=== PATIENT | male | born 1995 ===

== ENCOUNTER 2020-06-17 14:27 | Outpatient (REF) | payer MEDICARE, MEDICAID, SELFPAY ==
[2020-06-17 16:51] LABS: Hematocrit 33.1 % (42-52); Hemoglobin 11.2 g/dl (14.0-18.0); Mean Corpuscular HGB Conc 33.8 g/dl (31.0-36.0); Mean Corpuscular Hemoglobin 29.3 pg (27.0-33.0); Mean Corpuscular Volume 86.6 fL (80-98); Mean Platelet Volume 12.1 fL (9.4-12.4); Platelet Count 214 X10*3/uL (160-400); Red Blood Count 3.82 X10*6/uL (4.60-5.80); White Blood Count 6.1 X10*3/uL (4.8-10.8)
== END 2020-06-17 14:28 | disposition home or self-care (01) ==
LOC: HO.HMGCLDS 14:27
PROVIDERS: PCP Internal Medicine; Visit Provider Hospitalist
DX: Z12.12 Encounter for screening for malignant neoplasm of rectum (principal)
CPT/HCPCS: 36415; 85027

== ENCOUNTER 2020-12-20 12:26 | Outpatient (REF) | payer MEDICARE, MEDICAID, SELFPAY ==
[2020-12-20 14:19] LABS: Hematocrit 31.2 % (42-52); Hemoglobin 9.5 g/dl (14.0-18.0); Mean Corpuscular HGB Conc 30.4 g/dl (31.0-36.0); Mean Corpuscular Hemoglobin 25.4 pg (27.0-33.0); Mean Corpuscular Volume 83.4 fL (80-98); Mean Platelet Volume 11.6 fL (9.4-12.4); Platelet Count 240 X10*3/uL (160-400); Red Blood Count 3.74 X10*6/uL (4.60-5.80); Red Cell Distribution Width 15.2 % (11.0-16.0); White Blood Count 3.9 X10*3/uL (4.8-10.8)
[2020-12-20 14:45] LABS: Alanine Aminotransferase 19 U/L (0-40); Albumin Level 4.4 g/dL (3.5-5.0); Alkaline Phosphatase 55 U/L (39-117); Anion Gap 15 (12-20); Aspartate Amino Transferase 23 U/L (5-37); Bilirubin Total 0.9 mg/dL (0.0-1.0); Blood Urea Nitrogen 8 mg/dL (9-16); Calcium 9.1 mg/dL (8.4-10.2); Carbon Dioxide 26 mmol/L (22-29); Chloride 106 mmol/L (96-108); Estimated Glomerular Filt Rate > 60; Glucose Random 82 mg/dL (60-115); Iron 13 mcg/dL (45-160); Percent Iron Saturation 3 % (15-50); Potassium 3.7 mmol/L (3.3-5.1); Sodium 143 mmol/L (135-145); Total Iron Binding Capacity 425 mcg/dL (228-428); Total Protein 7.4 g/dL (6.5-8.0); Unsaturated Iron Binding 412 ug/dL
[2020-12-20 16:50] LABS: Folate 14.6 ng/mL (> or = 4.0); Vitamin B12 373 pg/mL (200-900)
== END 2020-12-20 12:27 | disposition home or self-care (01) ==
LOC: HO.HMGCLDS 12:26
PROVIDERS: PCP Internal Medicine; Visit Provider Internal Medicine
DX: K22.10 Ulcer of esophagus without bleeding (principal); Q93.82 Williams syndrome; I37.0 Nonrheumatic pulmonary valve stenosis
CPT/HCPCS: 36415; 80053; 82607; 82746; 83540; 85027

== ENCOUNTER 2021-05-27 12:15 | Outpatient (REF) | payer MEDICARE, MEDICAID, SELFPAY ==
[2021-05-27 13:16] LABS: Influenza A PCR NEGATIVE (Negative); Influenza B PCR NEGATIVE (Negative); Resp Syncy Virus RNA Qual PCR NEGATIVE (Negative); SARS COV2 PCR INHOUSE NEGATIVE (Negative)
== END 2021-05-27 12:16 | disposition home or self-care (01) ==
LOC: HO.LNP 12:15
PROVIDERS: Visit Provider Internal Medicine
DX: Z20.822 Contact with and (suspected) exposure to COVID-19 (principal); R43.9 Unspecified disturbances of smell and taste
CPT/HCPCS: 0241U

== ENCOUNTER 2022-06-16 10:49 | Outpatient (REF) | payer MEDICARE, MEDICAID, SELFPAY ==
[2022-06-16 14:02] LABS: MANUAL DIFF FLAG NO
[2022-06-16 14:14] LABS: Basophils Absolute Auto 0.1 X10*3/uL (0.0-0.2); Basophils Percent Auto 1.4 % (0-2); Eosinophils Absolute Auto 0.2 X10*3/uL (0.0-0.4); Eosinophils Percent Auto 3.4 % (0-4); Hematocrit 41.8 % (42.0-52.0); Hemoglobin 13.5 g/dl (14.0-18.0); Imm Gran Abs Auto 0.01 X10*3/uL (0.00-0.03); Imm Gran Pct Auto 0.2 % (0.0-0.4); Lymphocytes Percent Auto 21.7 % (20-40); Mean Corpuscular HGB Conc 32.3 g/dl (31.0-36.0); Mean Corpuscular Hemoglobin 26.7 pg (27.0-33.0); Mean Corpuscular Volume 82.6 fL (80.0-98.0); Mean Platelet Volume 12.1 fL (9.4-12.4); Monocytes Absolute Auto 0.5 X10*3/uL (0.1-1.2); Monocytes Percent Auto 10.7 % (2-11); Neutrophils Absolute Auto 2.7 x10*3/uL (2.0-8.3); Neutrophils Percent Auto 62.6 % (45-73); Platelet Count 190 X10*3/uL (160-400); Red Blood Count 5.06 X10*6/uL (4.60-5.80); Red Cell Distribution Width 13.8 % (11.0-16.0); White Blood Count 4.4 X10*3/uL (4.8-10.8)
[2022-06-16 14:28] LABS: Alanine Aminotransferase 23 U/L (0-40); Albumin Level 4.7 g/dL (3.5-5.0); Alkaline Phosphatase 60 U/L (39-117); Anion Gap 16 (12-20); Aspartate Amino Transferase 26 U/L (5-37); Bilirubin Total 0.9 mg/dL (0.0-1.0); Blood Urea Nitrogen 10 mg/dL (9-16); Calcium 9.6 mg/dL (8.4-10.2); Carbon Dioxide 28 mmol/L (22-29); Chloride 103 mmol/L (96-108); Cholesterol 172 mg/dL; Estimated Glomerular Filt Rate > 60; Glucose Fasting 82 mg/dL (60-99); HDL Cholesterol 43 mg/dL; Iron 52 mcg/dL (45-160); LDL Cholesterol Calculated 117 mg/dl; Percent Iron Saturation 13 % (15-50); Potassium 3.5 mmol/L (3.3-5.1); Sodium 143 mmol/L (135-145); Total Iron Binding Capacity 404 mcg/dL (228-428); Triglycerides 61 mg/dL; Unsaturated Iron Binding 352 ug/dL
== END 2022-06-16 10:50 | disposition home or self-care (01) ==
LOC: HO.HMGCLDS 10:49
PROVIDERS: PCP Internal Medicine; Visit Provider Internal Medicine
DX: Z00.00 Encounter for general adult medical examination without abnormal findings (principal); J45.909 Unspecified asthma, uncomplicated; K22.10 Ulcer of esophagus without bleeding
CPT/HCPCS: 36415; 80053; 80061; 83540; 85025

== ENCOUNTER 2023-05-13 13:19 | Outpatient (AMB) | payer OTHER, MEDICAID, SELFPAY ==
[2023-05-13 14:06] VITALS: BP 122/86; PULSE 84; TEMP 36.8; O2SAT 99; BMI 29.7
--- NOTE | 2023-05-13 14:06 | MHC.OFFWIV ---
Intake Vital Signs 05/13/23 14:06 Height 5 ft Weight 152 lb 2 oz BMI 29.7 BP 122/86 Blood Pressure Location Lt brachial Position Sitting Pulse 84 Pulse Source Pulse Oximeter Temp 98.3 F Temp Source Oral Pulse Oximetry (%) 99 Oxygen Delivery Method Room Air Intake Visit Reasons: EP Lump RT Arm Intake Note: Patient is here today for RT arm pain. Also its a little swelling occurred since Wednesday. Patient Tobacco Use Status: Never used Tobacco Allergies acetaminophen [From Tylenol-Codeine #3] Allergy (Verified 05/13/23 14:06) hives codeine [From Tylenol-Codeine #3] Allergy (Verified 05/13/23 14:06) hives Do you need a note to return to daycare/school/sports/work: No HPI HPI Comments History of Present Illness Details The patient is brought in by mom for evaluation of a swelling noted to the back of the right arm. Patient noticed it on Wednesday of last week and reported that it is somewhat painful to the touch. No other concerning symptoms. The area has not increased in size or changed in color. There was no trauma [facility] Medical History Anemia Annual physical exam Aortic stenosis, supravalvular Asthma Erosive esophagitis Left carotid artery stenosis Pulmonary valve stenosis Subclavian artery stenosis, left Nadeem syndrome Surgical History H/O hernia repair History of open heart surgery Family History Mother No problems noted. Father No problems noted. Social History Housing: House Alcohol intake: never Patient Tobacco Use Status: Never used Tobacco e-Cigarette/Vaping Use: Never Used Current occupational status: disabled Cognitive needs: No Hearing needs: No Vision needs: No Review of Systems Eyes Reports no additional complaints ENT Reports Normal hearing present and Denies dysphagia Card Denies dyspnea and Denies slow heart rate Resp Denies cough and Denies dyspnea GI Denies dysphagia and Denies heartburn Denies dysuria Musc Denies tingling Skin/Breast Reports lesions, Denies skin ulcer and Denies unusual bruising Neuro Reports Normal hearing present, Denies Sensory deficit (Neuro), Denies tingling and Denies paresthesias Physical Exam Vital Signs: Last Vital Signs Temp 98.3 F 05/13/23 14:06 Pulse 84 05/13/23 14:06 BP 122/86 05/13/23 14:06 Pulse Ox 99 05/13/23 14:06 Oxygen Delivery Method Room Air 05/13/23 14:06 BMI result Body Mass Index 29.7 Const General: healthy appearing and no acute distress Resp Effort & Inspection: normal respiratory effort and able to speak in complete sentences Neuro Cranial nerves: Yes Normal hearing present Sensory Exam: No Sensory deficit (Neuro) Extrem Other: Right upper extremity posterior aspect over the triceps muscle, mild area of soft tissue swelling in the subcutaneous tissue layer. No erythema of the skin. Mildly tender to palpation. Full range of motion of the upper extremity. No swelling distal to the triceps region Assessment & Plan Assessment & Plan (1) Localized swelling of right upper extremity: Code(s): R22.31 - Localized swelling, mass and lump, right upper limb Plan Swelling to the back of the arm very Localized of uncertain significance. No sign of infection. Recommended to mom to keep a close watch on the area and return if symptoms worsen Coding Level of Care Code Est Pt Level 3 (07589) Diagnoses Localized swelling of right upper extremity R22.31
== END 2023-05-13 14:28 | disposition home or self-care (01) ==
PROVIDERS: PCP Internal Medicine; Visit Provider Emergency Medicine
DX: R22.31 Localized swelling, mass and lump, right upper limb (principal)
CPT/HCPCS: 99213

== ENCOUNTER 2023-06-18 10:40 | Outpatient (AMB) | payer OTHER, MEDICAID, SELFPAY ==
--- NOTE | 2023-06-18 10:41 | A.OFFPC_ITS ---
Vital Signs 06/18/23 10:43 Height 5 ft Weight 153 lb BMI 29.9 BP 118/74 Blood Pressure Location Lt brachial Position Sitting Pulse 73 Pulse Source Pulse Oximeter Pulse Oximetry (%) 99 Oxygen Delivery Method Room Air Intake Visit Reasons: PE Intake Note: Pt is here today for PE. Allergies acetaminophen [From Tylenol-Codeine #3] Allergy (Verified 06/18/23 10:45) hives codeine [From Tylenol-Codeine #3] Allergy (Verified 06/18/23 10:45) hives Medication List - Last Reconciled 06/18/23 by Beth Child MD aspirin mg PO atenolol 25 mg PO BID budesonide mg inhalation BID cetirizine 10 mg PO DAILY clotrimazole 1% (Athlete's Foot (clotrimazole)) 1 appl topical BID 2 weeks dexlansoprazole (Dexilant) 60 mg PO DAILY epinephrine IM DIRECTED ketoconazole 2% 1 appl topical 2XW levalbuterol HCl (Xopenex) 0.63 mg (3 mL) inhalation TID PRN levalbuterol tartrate 45 mcg/actuation 1 puff PO Q4H PRN Tobacco use date assessed: 06/18/23 Dental Screening Dental Screen Date: 06/18/23 Did you have a dental visit in the last 12 months?: Yes Did you have a dental problem in the last 6 months where you did not have access to dental care?: No Was dental information given to patient?: Patient has dentist HPI PE HPI Details Patient presents for physical [facility] Medical History Anemia Aortic stenosis, supravalvular Left carotid artery stenosis Subclavian artery stenosis, left Erosive esophagitis Annual physical exam Asthma Nadeem syndrome Pulmonary valve stenosis Surgical History History of open heart surgery H/O hernia repair Family History Mother No problems noted. Father No problems noted. Social History Housing: House Alcohol intake: never Patient Tobacco Use Status: Never used Tobacco e-Cigarette/Vaping Use: Never Used Current occupational status: disabled Cognitive needs: No Hearing needs: No Vision needs: No Questionnaire PHQ-9 Over the last 2 weeks, how often have you been bothered by any of the following problems? 1. Little interest or pleasure in doing things: not at all 2. Feeling down, depressed, or hopeless: not at all 3. Trouble falling or staying asleep, or sleeping too much: not at all 4. Feeling tired or having little energy: not at all 5. Poor appetite or overeating: not at all 6. Feeling bad about yourself - or that you are a failure or have let yourself or your family down: not at all 8. Moving or speaking so slowly that other people could have noticed. Or the opposite - being so fidgety or restless that you have been moving around a lot more than usual: not at all 9. Thoughts that you would be better off or of hurting yourself in some way: not at all Depression Screening Interpretation: Negative Depression Screening Done: Yes Source: Developed by Drs. Braydon Davidson, Sadie Silver, Maximiliano Greenfield and colleagues, with an educational syl from [employer]. Thrive Questionnaire Date Thrive assessed: 06/18/23 I am a: Patient What is your living situation today?: I have a steady place to live Within the past 12 months, did the food you bought not last and you didn't have the money to get more?: Never true Within the past 12 months, did you worry whether your food would run out before you got money to buy more?: Never true Do you have trouble paying for medicines?: No Do you have trouble getting transportation to medical appointments?: No Do you have trouble paying your heating and electricity bill?: No Do you have trouble taking care of your child, family member or friend?: No Do you have trouble with day-to-day activities such as bathing, preparing meals, shopping, managing finances, etc.?: No Are you currently unemployed and looking for a job?: No Are you interested in more education?: No Please select the resources that you would like help with: None AUDIT C Alcohol Use Questionnaire (AUDIT-C) 1. How often do you have a drink containing alcohol?: Never 3. How often do you have six or more drinks on one occasion?: Never Total Score: 0 ZO-7 AMB Questionnaire ZO-7 Date ZO - 7 assessed: 06/18/23 Feeling nervous, anxious, or on edge: 0 = Not at all Not being able to stop or control worryin = Not at all Worrying too much about different things: 0 = Not at all Trouble relaxin = Not at all Being so restless that it is hard to sit still: 0 = Not at all Becoming easily annoyed or irritable: 0 = Not at all Feeling afraid as if something awful might happen: 0 = Not at all Total ZO-7 score (0-4 normal; 5-9 mild; 10-14 moderate; 15-21 severe): 0 Source: Developed by Drs. Braydon Davidson, Sadie Silver, Maximiliano Greenfield and colleagues, with an educational syl from [employer]. Review of Systems Const All systems reviewed & are unremarkable except as noted in HPI and below Reports no additional complaints Eyes Reports no additional complaints ENT Reports no additional complaints Card Reports no additional complaints Resp Reports no additional complaints GI Reports no additional complaints Reports no additional complaints Physical exam (Primary Care) Vital Signs: Last Vital Signs Pulse 73 06/18/23 10:43 BP 118/74 06/18/23 10:43 Pulse Ox 99 06/18/23 10:43 Oxygen Delivery Method Room Air 06/18/23 10:43 BMI result Body Mass Index 29.9 Tobacco/Smoking Status: Tobacco use Status Tobacco use date assessed 06/18/23 06/18/23 10:49 Patient Tobacco Use Status Never used Tobacco 06/18/23 10:49 e-Cigarette/Vaping Use Never Used 06/18/23 10:42 Depression Screening Interpretation: Negative Thrive Assessment: Date of Thrive Assessment Date Thrive assessed 06/18/23 06/18/23 10:52 Const General: no acute distress HENMT General nose exam: Normal external nose present Eyes General: appearance normal, both eyes and all related structures Neck Neck: Yes no lymphadenopathy and Yes supple Resp Effort & Inspection: normal respiratory effort Auscultation: clear to auscultation bilaterally Cardio Rhythm: regular rhythm Heart sounds: S1 normal heart sound present and S2 normal heart sound present GI Inspection: Yes normal to inspection Palpation (GI): Soft to palpation Percussion: Yes normal to percussion Auscultation: normal bowel sounds Assessment and Plan Assessment & Plan (1) Annual physical exam: Code(s): Z00.00 - Encounter for general adult medical examination without abnormal findings Plan: Well-balanced diet regular physical activity discussed with the patient .he will return for fasting blood work (2) Asthma: Comment: prn Albuterol nebulizer, 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 Panel Fast Today Z00.00 - Encounter for general adult medical examination without abnormal findings Medications: New clotrimazole-betamethasone 1-0.05 % 1 appl topical BID 4 weeks 45 grams 3RF Coding Level of Care Code Est Pt Prev Care 18-39y(37748) Diagnoses Annual physical exam Z00.00 Asthma J45.909
[2023-06-18 10:43] VITALS: BP 118/74; PULSE 73; O2SAT 99; BMI 29.9
== END 2023-06-18 11:37 | disposition home or self-care (01) ==
PROVIDERS: Visit Provider Internal Medicine
DX: Z00.00 Encounter for general adult medical examination without abnormal findings (principal); J45.909 Unspecified asthma, uncomplicated
CPT/HCPCS: 99395

== ENCOUNTER 2023-06-29 11:28 | Outpatient (REF) | payer OTHER, SELFPAY ==
[2023-06-29 13:30] LABS: MANUAL DIFF FLAG NO
[2023-06-29 13:38] LABS: Basophils Absolute Auto 0.1 X10*3/uL (0.0-0.2); Basophils Percent Auto 1.6 % (0-2); Eosinophils Absolute Auto 0.2 X10*3/uL (0.0-0.4); Eosinophils Percent Auto 4.8 % (0-4); Hematocrit 41.3 % (42.0-52.0); Hemoglobin 13.1 g/dl (14.0-18.0); Imm Gran Abs Auto 0.01 X10*3/uL (0.00-0.03); Imm Gran Pct Auto 0.3 % (0.0-0.4); Lymphocytes Percent Auto 25.5 % (20-40); Mean Corpuscular HGB Conc 31.7 g/dl (31.0-36.0); Mean Corpuscular Hemoglobin 26.7 pg (27.0-33.0); Mean Corpuscular Volume 84.3 fL (80.0-98.0); Mean Platelet Volume 11.8 fL (9.4-12.4); Monocytes Absolute Auto 0.4 X10*3/uL (0.1-1.2); Monocytes Percent Auto 9.8 % (2-11); Neutrophils Absolute Auto 2.2 x10*3/uL (2.0-8.3); Platelet Count 205 X10*3/uL (160-400); Red Cell Distribution Width 13.2 % (11.0-16.0); White Blood Count 3.8 X10*3/uL (4.8-10.8)
[2023-06-29 14:11] LABS: Alanine Aminotransferase 23 U/L (0-40); Albumin Level 4.2 g/dL (3.5-5.0); Alkaline Phosphatase 49 U/L (39-117); Anion Gap 9 (12-20); Aspartate Amino Transferase 24 U/L (5-37); Blood Urea Nitrogen 12 mg/dL (9-16); Calcium 9.4 mg/dL (8.4-10.2); Carbon Dioxide 32 mmol/L (22-29); Chloride 106 mmol/L (96-108); Cholesterol 140 mg/dL (<200); Estimated Glomerular Filt Rate > 60; Glucose Fasting 76 mg/dL (60-99); HDL Cholesterol 36 mg/dL (>40); LDL Cholesterol Calculated 87 mg/dL (<100); Sodium 143 mmol/L (135-145); Total Protein 7.4 g/dL (6.5-8.0); Triglycerides 89 mg/dL (<150)
== END 2023-06-29 11:29 | disposition home or self-care (01) ==
LOC: HO.HMGCLDS 11:28
PROVIDERS: PCP Internal Medicine; Visit Provider Internal Medicine
DX: Z00.00 Encounter for general adult medical examination without abnormal findings (principal); Z20.2 Contact with and (suspected) exposure to infections with a predominantly sexual mode of transmission
CPT/HCPCS: 36415; 80053; 80061; 85025

== ENCOUNTER 2023-06-29 11:52 | Outpatient (AMB) | payer OTHER, MEDICAID, SELFPAY ==
--- NOTE | 2023-06-29 12:05 | AM.OFFVISNUR ---
Intake Intake Visit Reasons: Flu shot Intake Note: Pt arrived for flu vaccine Allergies acetaminophen [From Tylenol-Codeine #3] Allergy (Verified 06/18/23 10:45) hives codeine [From Tylenol-Codeine #3] Allergy (Verified 06/18/23 10:45) hives Office Procedures Flu Questionnaire Does the patient have a severe egg allergy?: No Does the patient have severe life threatening allergies?: No Does the patient have a fever or illness today?: No Has the patient ever had Guillain-[place] Syndrome?: No Has the patient ever had any past reaction to a flu shot?: No Immunizations flu vacc [id number] 6mos up(PF) 60 mcg(15 mcgx4)/0.5 mL IM syringe Performing Provider: Beth Child MD [facility] Administered by: Nanda Mendez RN on 06/29/23 12:05 Dose Route Admin Location Dispensed Lot Number Expiration Date NDC [employer]st 0.5 mL IM Left Deltoid 0.5 mL [id number] 02/20/24 49972-736-29 [employer] VIS Given Date VIS Provided VIS Publication Date 06/29/23 Single Vaccine 21 Eligibility Eligibility Date Funding Source Not VFC Eligible 06/29/23 Private Coding Assessment & Plan Assessment & Plan Orders: Orders Influenza [id number] Immunization Today Z23 - Encounter for immunization
== END 2023-06-29 15:59 | disposition home or self-care (01) ==
LOC: HO.HMGC 11:52
PROVIDERS: PCP Internal Medicine; Visit Provider Internal Medicine
DX: Z23 Encounter for immunization (principal)
CPT/HCPCS: 90471; 90686

== ENCOUNTER 2023-07-03 09:36 | Outpatient (AMB) | payer OTHER, SELFPAY ==
--- NOTE | 2023-07-03 11:15 | AM.OFFWIN_ITS ---
Intake Vital Signs 07/03/23 11:21 Height 5 ft Weight 153 lb BMI 29.9 BP 130/80 Blood Pressure Location Rt brachial Position Sitting Pulse 105 H Pulse Source Pulse Oximeter Temp 99.7 F Temp Source Oral Pulse Oximetry (%) 97 Oxygen Delivery Method Room Air Intake Visit Reasons: EP, congestion, yellow phlegm [phone] Intake Note: Pt is here today c/o chest and nasal congestion and coughing up yellow phelgm Patient Tobacco Use Status: Never used Tobacco Allergies acetaminophen [From Tylenol-Codeine #3] Allergy (Verified 07/03/23 11:15) hives codeine [From Tylenol-Codeine #3] Allergy (Verified 07/03/23 11:15) hives Do you need a note to return to daycare/school/sports/work: No HPI HPI Comments History of Present Illness Details This is a 28-year-old male with a past medical history of Nadeem syndrome and pulmonary aortic stenosis presenting with his mother for evaluation of nasal congestion, cough and discolored phlegm that he has had for the past 4 days. Patient was seen by his lodge sales associate on however his coughing congestion has worsened since that time. Of note, the patient's nebulizer machine is broken and a replacement has been ordered. The patient's mother reports increased cough and yellowish green phlegm. Patient states that he will occasionally feel short of breath but denies having any fevers or chills. There have been no new sick contacts. [facility] Medical History Anemia Aortic stenosis, supravalvular Left carotid artery stenosis Subclavian artery stenosis, left Erosive esophagitis Annual physical exam Asthma Nadeem syndrome Pulmonary valve stenosis Surgical History History of open heart surgery H/O hernia repair Family History Mother No problems noted. Father No problems noted. Social History Housing: House Alcohol intake: never Patient Tobacco Use Status: Never used Tobacco e-Cigarette/Vaping Use: Never Used Current occupational status: disabled Cognitive needs: No Hearing needs: No Vision needs: No Review of Systems Const All systems reviewed & are unremarkable except as noted in HPI and below Denies chills, Reports fatigue, Denies fever(s), Denies headache(s), Reports lethargy and Reports malaise Eyes Reports no additional complaints ENT Reports no additional complaints, Denies otalgia, Denies headache(s) and Reports nasal congestion Card Reports no additional complaints and Reports dyspnea Resp Reports as per HPI, Reports cough and Reports dyspnea Skin/Breast Reports system reviewed and no additional complaints, except as documented Neuro Denies headache(s) Endo Reports fatigue Physical Exam Vital Signs: Last Vital Signs Temp 99.7 F 07/03/23 11:21 Pulse 105 H 07/03/23 11:21 BP 130/80 07/03/23 11:21 Pulse Ox 97 07/03/23 11:21 Oxygen Delivery Method Room Air 07/03/23 11:21 BMI result Body Mass Index 29.9 mild tachycardia, afebrile Const General: cooperative, comfortable, no acute distress, well developed, alert and awake; No ill appearing Nutritional Appearance: average body habitus Orientation/consciousness: patient oriented x3 Limitations: no limitations HEENT Head: Yes normal to inspection and Yes normocephalic Ears: hearing grossly normal bilaterally, external ears normal, TM's normal bilaterally and EAC's normal General nose exam: Normal external nose present Face and sinus: Yes normal facial exam, Yes sinuses nontender and Yes sinus tenderness (mild maxillary sinus tenderness) Mouth: Normal oral and palatal mucosa present Teeth and gingiva: dentition normal Throat: Yes postnasal drainage Eyes Eyelids: Yes eyelids normal Conjunctivae: conjunctivae normal Sclerae: sclerae normal Corneas: corneas normal Pupils: Equal, round and reactive pupils present EOM: EOMs intact bilaterally Neck Lymphatic: no lymphadenopathy noted Resp Effort & Inspection: able to speak in complete sentences, no audible wheezes, Actively coughing, not labored and no respiratory distress Auscultation: wheezes expiratory wheezes and left upper Cardio Rate: tachycardic (hr 108 on examination) Rhythm: regular rhythm Neuro General: patient oriented x3 Cranial nerves: Yes Equal, round and reactive pupils present Psych Appearance: grossly normal Mental Status: mental status grossly normal Insight: Good insight present (Psych) Judgement: Good judgement present (Psych) Assessment & Plan Assessment & Plan (1) Bronchitis: Code(s): J40 - Bronchitis, not specified as acute or chronic Plan: Patient is seen and evaluated with his mother present. Given his history, coupled with his examination this patient will be discharged with antibiotic therapy as well as a short course of steroid therapy. Patient will follow up with his primary care provider as an outpatient if his symptoms persist 5-7 days. Medications: New doxycycline hyclate 100 mg PO BID 7 days 14 caps 0RF prednisone 40 mg (2 x 20 mg) PO DAILY 8 tabs 0RF Coding Level of Care Code Est Pt Level 4 (93816) Diagnoses Bronchitis J40 Time Spent (min) 30
[2023-07-03 11:21] VITALS: BP 130/80; PULSE 105; TEMP 37.6; O2SAT 97; BMI 29.9
== END 2023-07-03 11:54 | disposition home or self-care (01) ==
PROVIDERS: PCP Internal Medicine; Visit Provider Physician Assistant
DX: J40 Bronchitis, not specified as acute or chronic (principal)
CPT/HCPCS: 99214

== ENCOUNTER 2024-01-10 10:55 | Outpatient (AMB) | payer OTHER, SELFPAY ==
--- NOTE | 2024-01-10 10:55 | AM.OFFWIN_ITS ---
Intake Vital Signs 01/10/24 11:03 Height 5 ft Weight 141 lb BMI 27.5 BP 120/76 Blood Pressure Location Lt brachial Position Sitting Pulse 82 Pulse Source Pulse Oximeter Temp 97.9 F Temp Source Temporal Artery Scan Pulse Oximetry (%) 98 Oxygen Delivery Method Room Air Intake Visit Reasons: EST/congestion and sore throat (lobby maskeed) Intake Note: pt is here today for congestion and sore throat started wednesday Patient Tobacco Use Status: Never used Tobacco Allergies acetaminophen [From Tylenol-Codeine #3] Allergy (Verified 01/10/24 11:06) hives codeine [From Tylenol-Codeine #3] Allergy (Verified 01/10/24 11:06) hives Do you need a note to return to daycare/school/sports/work: No HPI HPI Comments History of Present Illness Details This is a 28-year-old male who presented to the walk-in clinic complaining of nasal/sinus congestion and rhinorrhea with green-yellow nasal discharge x 3 days. Patient has positive sick contact at home with his siblings. He has no fevers/chills. He reports a mild scratchy throat although denies any odynophagia/significant sore throat. He denies any otalgia but states that his ears feel blocked/muffled. [facility] Medical History Anemia Aortic stenosis, supravalvular Left carotid artery stenosis Subclavian artery stenosis, left Erosive esophagitis Annual physical exam Asthma Nadeem syndrome Pulmonary valve stenosis Surgical History History of open heart surgery H/O hernia repair Family History Mother No problems noted. Father No problems noted. Social History Housing: House Alcohol intake: never Patient Tobacco Use Status: Never used Tobacco e-Cigarette/Vaping Use: Never Used Current occupational status: disabled Cognitive needs: No Hearing needs: No Vision needs: No Review of Systems Const All systems reviewed & are unremarkable except as noted in HPI and below Reports no additional complaints Eyes Reports no additional complaints ENT Reports no additional complaints Card Reports no additional complaints Resp Reports no additional complaints GI Reports no additional complaints Reports no additional complaints Musc Reports no additional complaints Skin/Breast Reports system reviewed and no additional complaints, except as documented Neuro Reports no additional complaints Psych Reports no additional complaints Endo Reports no additional complaints Alirio/Lymph Reports no additional complaints Aller/Immun Reports no additional complaints Physical Exam Vital Signs: Last Vital Signs Temp 97.9 F 01/10/24 11:03 Pulse 82 01/10/24 11:03 BP 120/76 01/10/24 11:03 Pulse Ox 98 01/10/24 11:03 Oxygen Delivery Method Room Air 01/10/24 11:03 BMI result Body Mass Index 27.5 Const Other: Vital signs reviewed. Constitutional: Non-toxic appearing. No acute distress. Well-developed and well-nourished. HEENT: Normocephalic and atraumatic. Tympanic membranes without erythema, edema, or bulging bilaterally. External auditory canals without erythema or edema bilaterally. Moist mucous membranes. Mild posterior pharyngeal erythema without exudates or edema. + Post-nasal drip. Skin: Warm and dry. No rashes or lesions noted. Neck: Full and painless range of motion. No cervical lymphadenopathy. Cardio: Regular rate. No lower extremity edema. No JVD. Pulmonary: No respiratory distress. No accessory muscle usage. Musculoskeletal: Normal range of motion in joints throughout the body. No deformity or other signs of injury. Neuro: Alert and oriented x4. Cranial nerves 2-12 grossly intact. No focal deficits appreciated. Psych: Normal mood and affect. Results AMB Rapid Strep AMB Rapid Strep Negative Last Edit by Chandana Sullivan MA on 01/10/24 11:21 Assessment & Plan Assessment & Plan (1) Acute rhinosinusitis: Code(s): J01.90 - Acute sinusitis, unspecified Plan: This is a 28-year-old male who presented to the walk-in clinic complaining of nasal/sinus congestion and rhinorrhea with green-yellow nasal discharge x 3 days. History and physical most consistent with acute bacterial rhinosinusitis. Patient sent home on PO doxycycline 100 mg twice daily x 7 days as he did not tolerate augmentin in the past. Recommended symptomatic management including rest, increased fluids, advil/tylenol for pain/fever, and over the counter throat lozenges/decongestants. Patient advised to follow up here or go to the emergency room for worsening/persistent symptoms.Patient and his mother verbalized their understanding and they are agreeable with the plan. Medications: New doxycycline hyclate 100 mg PO BID 14 caps 0RF Coding Level of Care Code Est Pt Level 3 (56984) Diagnoses Acute rhinosinusitis J01.90
[2024-01-10 11:03] VITALS: BP 120/76; PULSE 82; TEMP 36.6; O2SAT 98; BMI 27.5
== END 2024-01-10 11:58 | disposition home or self-care (01) ==
PROVIDERS: PCP Internal Medicine; Visit Provider Physician Assistant Medical
DX: J01.90 Acute sinusitis, unspecified (principal)
CPT/HCPCS: 99213

== ENCOUNTER 2024-01-27 12:26 | Outpatient (AMB) | payer OTHER, SELFPAY ==
[2024-01-27 12:39] VITALS: BP 130/74; PULSE 80; O2SAT 96; BMI 27.9
--- NOTE | 2024-01-27 12:39 | MHC.PC.OV ---
Vital Signs 01/27/24 12:39 Height 5 ft Weight 143 lb BMI 27.9 BP 130/74 Blood Pressure Location Rt brachial Position Sitting Pulse 80 Pulse Source Pulse Oximeter Pulse Oximetry (%) 96 Oxygen Delivery Method Room Air Intake Visit Reasons: Reg Visit Allergies acetaminophen [From Tylenol-Codeine #3] Allergy (Verified 01/27/24 12:39) hives codeine [From Tylenol-Codeine #3] Allergy (Verified 01/27/24 12:39) hives Medication List - Last Reconciled 01/27/24 by Beth Child MD amoxicillin 2,000 mg (4 x 500 mg) PO ONCE aspirin mg PO atenolol 25 mg PO BID budesonide mg inhalation BID cetirizine 10 mg PO DAILY clotrimazole 1% (Athlete's Foot (clotrimazole)) 1 appl topical BID 2 weeks clotrimazole-betamethasone 1-0.05 % 1 appl topical BID 4 weeks dexlansoprazole (Dexilant) 60 mg PO DAILY epinephrine IM DIRECTED ketoconazole 2% 1 appl topical 2XW levalbuterol HCl (Xopenex) 0.63 mg (3 mL) inhalation TID PRN levalbuterol tartrate 45 mcg/actuation 1 puff PO Q4H PRN Tobacco use date assessed: 01/27/24 Dental Screening Dental Screen Date: 01/27/24 Did you have a dental visit in the last 12 months?: Yes Did you have a dental problem in the last 6 months where you did not have access to dental care?: No Was dental information given to patient?: Patient has dentist [facility] Medical History Anemia Aortic stenosis, supravalvular Left carotid artery stenosis Subclavian artery stenosis, left Erosive esophagitis Annual physical exam Asthma Nadeem syndrome Pulmonary valve stenosis Surgical History History of open heart surgery H/O hernia repair Family History Mother No problems noted. Father No problems noted. Social History Housing: House Alcohol intake: never Patient Tobacco Use Status: Never used Tobacco e-Cigarette/Vaping Use: Never Used Current occupational status: disabled Cognitive needs: No Hearing needs: No Vision needs: No Questionnaire PHQ-9 Over the last 2 weeks, how often have you been bothered by any of the following problems? 1. Little interest or pleasure in doing things: not at all 2. Feeling down, depressed, or hopeless: not at all 3. Trouble falling or staying asleep, or sleeping too much: not at all 4. Feeling tired or having little energy: not at all 5. Poor appetite or overeating: not at all 6. Feeling bad about yourself - or that you are a failure or have let yourself or your family down: not at all 8. Moving or speaking so slowly that other people could have noticed. Or the opposite - being so fidgety or restless that you have been moving around a lot more than usual: not at all 9. Thoughts that you would be better off or of hurting yourself in some way: not at all Depression Screening Interpretation: Negative Depression Screening Done: Yes 87674 - PHQ-9 Billing: Yes Source: Developed by Drs. Braydon Davidson, Sadie Silver, Maximiliano Greenfield and colleagues, with an educational syl from [employer]. Thrive Questionnaire Date Thrive assessed: 01/27/24 I am a: Patient What is your living situation today?: I have a steady place to live Within the past 12 months, did the food you bought not last and you didn't have the money to get more?: Never true Within the past 12 months, did you worry whether your food would run out before you got money to buy more?: Never true Do you have trouble paying for medicines?: No Do you have trouble getting transportation to medical appointments?: No Do you have trouble paying your heating and electricity bill?: No Do you have trouble taking care of your child, family member or friend?: No Do you have trouble with day-to-day activities such as bathing, preparing meals, shopping, managing finances, etc.?: No Are you currently unemployed and looking for a job?: No Are you interested in more education?: No Please select the resources that you would like help with: None THRIVE Score: 0 AUDIT C Alcohol Use Questionnaire (AUDIT-C) 1. How often do you have a drink containing alcohol?: Never 3. How often do you have six or more drinks on one occasion?: Never Total Score: 0 Score Reviewed/Action Taken: Yes ZO-7 AMB Questionnaire ZO-7 Date ZO - 7 assessed: 01/27/24 Feeling nervous, anxious, or on edge: 0 = Not at all Not being able to stop or control worryin = Not at all Worrying too much about different things: 0 = Not at all Trouble relaxin = Not at all Being so restless that it is hard to sit still: 0 = Not at all Becoming easily annoyed or irritable: 0 = Not at all Feeling afraid as if something awful might happen: 0 = Not at all Total ZO-7 score (0-4 normal; 5-9 mild; 10-14 moderate; 15-21 severe): 0 Source: Developed by Drs. Braydon Davidson, Sadie Silver, Maximiliano Greenfield and colleagues, with an educational syl from [employer]. Review of Systems Const All systems reviewed & are unremarkable except as noted in HPI and below Reports no additional complaints Eyes Reports no additional complaints ENT Reports no additional complaints Card Reports no additional complaints Resp Reports no additional complaints GI Reports no additional complaints Reports no additional complaints Physical exam (Primary Care) Vital Signs: Last Vital Signs Pulse 80 01/27/24 12:39 BP 130/74 01/27/24 12:39 Pulse Ox 96 01/27/24 12:39 Oxygen Delivery Method Room Air 01/27/24 12:39 BMI result Body Mass Index 27.9 Tobacco/Smoking Status: Tobacco use Status Tobacco use date assessed 01/27/24 01/27/24 12:42 Patient Tobacco Use Status Never used Tobacco 01/27/24 12:42 e-Cigarette/Vaping Use Never Used 01/27/24 12:42 Depression Screening Interpretation: Negative Thrive Assessment: Date of Thrive Assessment Date Thrive assessed 01/27/24 01/27/24 12:42 Const General: no acute distress HENMT Head: Yes normal to inspection Ears: hearing grossly normal bilaterally Eyes General: appearance normal, both eyes and all related structures Neck Neck: Yes no lymphadenopathy and Yes supple Resp Effort & Inspection: normal respiratory effort Auscultation: clear to auscultation bilaterally Cardio Rhythm: regular rhythm Heart sounds: S1 normal heart sound present and S2 normal heart sound present Assessment and Plan Assessment & Plan (1) Asthma: Comment: prn Albuterol nebulizer, follows up with national service officer Dr. Lewis Code(s): J45.909 - Unspecified asthma, uncomplicated Plan: Continue DuoNeb and Xopenex updrafts twice a day follow-up with national service officer as needed (2) Subclavian artery stenosis, left: Comment: Dr. Cabrera from [facility] , Echo q 6 months, [facility] Code(s): I77.1 - Stricture of artery Plan: Follow-up with [facility] every 6 months (3) Aortic stenosis, supravalvular: Code(s): Q25.3 - Supravalvular aortic stenosis Plan: Continue atenolol as prescribed by cardiology Orders: Orders Lipid Panel 6 Months I77.1 - Stricture of artery, J45.909 - Unspecified asthma, uncomplicated, Q25.3 - Supravalvular aortic stenosis Comprehensive [place]. Panel Fast 6 Months I77.1 - Stricture of artery, J45.909 - Unspecified asthma, uncomplicated, Q25.3 - Supravalvular aortic stenosis Complete Blood Count Auto Diff 6 Months I77.1 - Stricture of artery, J45.909 - Unspecified asthma, uncomplicated, Q25.3 - Supravalvular aortic stenosis Coding Level of Care Code Est Pt Level 4 (56117) Diagnoses Asthma J45.909 Subclavian artery stenosis, left I77.1 Aortic stenosis, supravalvular Q25.3
== END 2024-01-27 13:06 | disposition home or self-care (01) ==
PROVIDERS: PCP Internal Medicine; Visit Provider Internal Medicine
DX: J45.909 Unspecified asthma, uncomplicated (principal); I77.1 Stricture of artery; Q25.3 Supravalvular aortic stenosis
CPT/HCPCS: 99214

== ENCOUNTER 2024-06-21 13:29 | Outpatient (AMB) | payer OTHER, SELFPAY ==
[2024-06-21 13:33] VITALS: BP 124/78; PULSE 66; O2SAT 98; BMI 27.3
--- NOTE | 2024-06-21 13:33 | A.OFFPC_ITS ---
Vital Signs 06/21/24 13:33 Height 5 ft Weight 140 lb BMI 27.3 BP 124/78 Blood Pressure Location Rt brachial Position Sitting Pulse 66 Pulse Source Pulse Oximeter Pulse Oximetry (%) 98 Oxygen Delivery Method Room Air Intake Visit Reasons: Annual PE/Hep b Intake Note: Pt is here today for PE. Allergies acetaminophen [From Tylenol-Codeine #3] Allergy (Verified 06/21/24 13:37) hives codeine [From Tylenol-Codeine #3] Allergy (Verified 06/21/24 13:37) hives Medication List - Last Reconciled 06/21/24 by Beth Child MD amoxicillin 2,000 mg (4 x 500 mg) PO ONCE aspirin mg PO atenolol 25 mg PO BID budesonide mg inhalation BID cetirizine 10 mg PO DAILY clotrimazole 1% (Athlete's Foot (clotrimazole)) 1 appl topical BID 2 weeks clotrimazole-betamethasone 1-0.05 % 1 appl topical BID 4 weeks dexlansoprazole (Dexilant) 60 mg PO DAILY epinephrine IM DIRECTED ketoconazole 2% 1 appl topical 2XW levalbuterol HCl (Xopenex) 0.63 mg (3 mL) inhalation TID PRN levalbuterol tartrate 45 mcg/actuation 1 puff PO Q4H PRN Tobacco use date assessed: 06/21/24 Dental Screening Dental Screen Date: 06/21/24 Did you have a dental visit in the last 12 months?: Yes Did you have a dental problem in the last 6 months where you did not have access to dental care?: No Was dental information given to patient?: Patient has dentist HPI Annual PE/Hep b HPI Details Pt presents for PE. [facility] Medical History Anemia Aortic stenosis, supravalvular Left carotid artery stenosis Subclavian artery stenosis, left Erosive esophagitis Annual physical exam Asthma Nadeem syndrome Pulmonary valve stenosis Surgical History History of open heart surgery H/O hernia repair Family History Mother No problems noted. Father No problems noted. Social History Housing: House Alcohol intake: never Patient Tobacco Use Status: Never used Tobacco e-Cigarette/Vaping Use: Never Used service: No Current occupational status: disabled Cognitive needs: No Hearing needs: No Vision needs: No Questionnaire PHQ-9 Over the last 2 weeks, how often have you been bothered by any of the following problems? 1. Little interest or pleasure in doing things: not at all 2. Feeling down, depressed, or hopeless: not at all 3. Trouble falling or staying asleep, or sleeping too much: not at all 4. Feeling tired or having little energy: not at all 5. Poor appetite or overeating: not at all 6. Feeling bad about yourself - or that you are a failure or have let yourself or your family down: not at all 7. Trouble concentrating on things, such as reading the newspaper or watching television: not at all 8. Moving or speaking so slowly that other people could have noticed. Or the opposite - being so fidgety or restless that you have been moving around a lot more than usual: not at all 9. Thoughts that you would be better off or of hurting yourself in some way: not at all Total score: 0 Depression Screening Interpretation: Negative Depression Screening Done: Yes 04017 - PHQ-9 Billing: Yes Source: Developed by Drs. Braydon Davidson, Sadie Silver, Maximiliano Greenfield and colleagues, with an educational syl from [employer]. Thrive Questionnaire Date Thrive assessed: 06/21/24 I am a: Parent/Caregiver What is your living situation today?: I have a steady place to live Within the past 12 months, did the food you bought not last and you didn't have the money to get more?: I choose not to answer this question Within the past 12 months, did you worry whether your food would run out before you got money to buy more?: I choose not to answer this question Do you have trouble paying for medicines?: No Do you have trouble getting transportation to medical appointments?: No Do you have trouble paying your heating and electricity bill?: I choose not to answer this question Do you have trouble taking care of your child, family member or friend?: No Do you have trouble with day-to-day activities such as bathing, preparing meals, shopping, managing finances, etc.?: I choose not to answer this question Are you currently unemployed and looking for a job?: I choose not to answer this question Are you interested in more education?: I choose not to answer this question Please select the resources that you would like help with: None Currently or been in a relationship where the following occur: I choose not to answer THRIVE Score: 0 AUDIT C Alcohol Use Questionnaire (AUDIT-C) 1. How often do you have a drink containing alcohol?: Never 3. How often do you have six or more drinks on one occasion?: Never Total Score: 0 ZO-7 AMB Questionnaire ZO-7 Date ZO - 7 assessed: 01/27/24 Source: Developed by Drs. Braydon Davidson, Sadie Silver, Mxaimiliano Greenfield and colleagues, with an educational syl from [employer]. Review of Systems Const All systems reviewed & are unremarkable except as noted in HPI and below Reports no additional complaints Eyes Reports no additional complaints ENT Reports no additional complaints Card Reports no additional complaints Resp Reports no additional complaints GI Reports no additional complaints Reports no additional complaints Musc Reports no additional complaints Physical exam (Primary Care) Vital Signs: Last Vital Signs Pulse 66 06/21/24 13:33 BP 124/78 06/21/24 13:33 Pulse Ox 98 06/21/24 13:33 Oxygen Delivery Method Room Air 06/21/24 13:33 BMI result Body Mass Index 27.3 Tobacco/Smoking Status: Tobacco use Status Tobacco use date assessed 06/21/24 06/21/24 13:39 Patient Tobacco Use Status Never used Tobacco 06/21/24 13:34 e-Cigarette/Vaping Use Never Used 06/21/24 13:34 PHQ-9: PHQ-9 Score PHQ-9: Total score 0 06/21/24 13:52 Depression Screening Interpretation: Negative Thrive Assessment: Date of Thrive Assessment Date Thrive assessed 06/21/24 06/21/24 13:34 Currently or been in a relationship where the following occur: I choose not to answer Const General: no acute distress HENMT Head: Yes normal to inspection Ears: hearing grossly normal bilaterally Face and sinus: Yes normal facial exam Mouth: Normal oral and palatal mucosa present Eyes General: appearance normal, both eyes and all related structures Neck Neck: Yes no lymphadenopathy and Yes supple Resp Effort & Inspection: normal respiratory effort Auscultation: clear to auscultation bilaterally Cardio Rhythm: regular rhythm Heart sounds: S1 normal heart sound present and S2 normal heart sound present GI Inspection: Yes normal to inspection Palpation (GI): Soft to palpation Percussion: Yes normal to percussion Auscultation: normal bowel sounds Office Procedures Flu Questionnaire Does the patient have a severe egg allergy?: No Does the patient have severe life threatening allergies?: No Does the patient have a fever or illness today?: No Has the patient ever had Guillain-[place] Syndrome?: No Has the patient ever had any past reaction to a flu shot?: No Immunizations Fluarix Triv [id number] (PF) 45 mcg (15 mcg x 3)/0.5 mL IM syringe Performing Provider: Beth Child MD Performing Location: [facility] Administered by: SONJA Salas on 06/21/24 14:05 Dose Route Admin Location Dispensed Lot Number Expiration Date 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.5 mL IM Right Deltoid 0.5 mL [id number] 02/19/25 [id number] Employee Benefit Plans VIS Given Date VIS Provided VIS Publication Date 06/21/24 Single Vaccine 21 Eligibility Eligibility Date Funding Source Not [facility] Eligible 06/21/24 Private Coding Level of Care Code Est Pt Prev Care 18-39y(68191) Diagnoses Annual physical exam Z00.00 Assessment & Plan Assessment & Plan (1) Annual physical exam: Code(s): Z00.00 - Encounter for general adult medical examination without abnormal findings Category: Medical Plan: Well-balanced diet regular physical activity discussed with the patient return in 1 year for physical
== END 2024-06-21 14:08 | disposition home or self-care (01) ==
LOC: HO.HMCC 13:30
PROVIDERS: PCP Internal Medicine; Visit Provider Internal Medicine
DX: Z00.00 Encounter for general adult medical examination without abnormal findings (principal); Z23 Encounter for immunization

== ENCOUNTER → 2024-06-21 13:29 | Outpatient (BNVA) | payer OTHER, SELFPAY | PROVIDERS: PCP Internal Medicine; Visit Provider Internal Medicine | DX: Z00.00 Encounter for general adult medical examination without abnormal findings (principal); Z23 Encounter for immunization | CPT/HCPCS: 90471; 90656; 96127 ==

== ENCOUNTER 2024-08-02 08:28 | Outpatient (REF) | payer OTHER, SELFPAY ==
[2024-08-02 09:57] LABS: MANUAL DIFF FLAG NO
[2024-08-02 09:59] LABS: Basophils Absolute Auto 0.1 X10*3/uL (0.0-0.2); Basophils Percent Auto 1.6 % (0-2); Eosinophils Absolute Auto 0.2 X10*3/uL (0.0-0.4); Eosinophils Percent Auto 4.7 % (0-4); Hematocrit 43.2 % (42.0-52.0); Hemoglobin 14.1 g/dl (14.0-18.0); Imm Gran Abs Auto 0.01 X10*3/uL (0.00-0.03); Imm Gran Pct Auto 0.2 % (0.0-0.4); Lymphocytes Absolute Auto 1.2 X10*3/uL (1.2-4.9); Lymphocytes Percent Auto 27.3 % (20-40); Mean Corpuscular HGB Conc 32.6 g/dl (31.0-36.0); Mean Corpuscular Hemoglobin 27.1 pg (27.0-33.0); Mean Corpuscular Volume 83.1 fL (80.0-98.0); Mean Platelet Volume 11.4 fL (9.4-12.4); Monocytes Absolute Auto 0.5 X10*3/uL (0.1-1.2); Monocytes Percent Auto 11.9 % (2-11); Neutrophils Absolute Auto 2.4 x10*3/uL (2.0-8.3); Neutrophils Percent Auto 54.3 % (45-73); Platelet Count 212 X10*3/uL (160-400); White Blood Count 4.4 X10*3/uL (4.8-10.8)
[2024-08-02 10:31] LABS: Alanine Aminotransferase 22 U/L (0-40); Albumin Level 4.2 g/dL (3.5-5.0); Alkaline Phosphatase 50 U/L (39-117); Anion Gap 11 (12-20); Aspartate Amino Transferase 26 U/L (5-37); Bilirubin Total 0.4 mg/dL (0.0-1.0); Blood Urea Nitrogen 16 mg/dL (9-16); Carbon Dioxide 30 mmol/L (22-29); Chloride 105 mmol/L (96-108); Cholesterol 133 mg/dL (<200); Estimated Glomerular Filt Rate > 60; Glucose Fasting 86 mg/dL (60-99); HDL Cholesterol 39 mg/dL (>40); LDL Cholesterol Calculated 78 mg/dL (<100); Potassium 3.7 mmol/L (3.3-5.1); Sodium 142 mmol/L (135-145); Total Protein 7.6 g/dL (6.5-8.0); Triglycerides 83 mg/dL (<150)
== END 2024-08-02 08:29 | disposition home or self-care (01) ==
LOC: HO.HMGCLDS 08:28
PROVIDERS: PCP Internal Medicine; Visit Provider Internal Medicine
DX: J45.909 Unspecified asthma, uncomplicated (principal); Q25.3 Supravalvular aortic stenosis; I77.1 Stricture of artery
CPT/HCPCS: 36415; 80053; 80061; 85025

== ENCOUNTER 2024-08-25 08:40 | Outpatient (REF) | payer OTHER, SELFPAY ==
[2024-08-25 11:13] LABS: Influenza A PCR NEGATIVE (Negative); Influenza B PCR NEGATIVE (Negative); Resp Syncy Virus RNA Qual PCR NEGATIVE (Negative); SARS COV2 PCR INHOUSE NEGATIVE (Negative)
== END 2024-08-25 08:41 | disposition home or self-care (01) ==
LOC: HO.LAB 08:40
PROVIDERS: PCP Internal Medicine; Visit Provider Physician Assistant
DX: J22 Unspecified acute lower respiratory infection (principal)
CPT/HCPCS: 0241U; 99212

== ENCOUNTER 2024-08-25 08:40 | Outpatient (AMB) | payer OTHER, SELFPAY ==
--- NOTE | 2024-08-25 08:50 | MHC.OFFWIV ---
Intake Vital Signs 08/25/24 08:56 Height 5 ft Weight 138 lb 8 oz BMI 27.0 BP 140/90 H Blood Pressure Location Rt brachial Position Sitting Pulse 76 Pulse Source Pulse Oximeter Temp 98.3 F Temp Source Oral Pulse Oximetry (%) 98 Oxygen Delivery Method Room Air Intake Visit Reasons: EP cough, congestion, [id number] Intake Note: Pt is here today c/o cough and chest congestion x1 week Patient Tobacco Use Status: Never used Tobacco Allergies acetaminophen [From Tylenol-Codeine #3] Allergy (Verified 08/25/24 08:51) hives codeine [From Tylenol-Codeine #3] Allergy (Verified 08/25/24 08:51) hives HPI HPI Comments History of Present Illness Details History The patient is a 29-year-old male presenting with his mother who is his caregiver, with chest congestion and cough. He initially experienced sinus congestion, runny nose, and stuffy nose, which evolved into a scratchy throat and eventually led to coughing with mucus production. This was accompanied by chest pain with his cough. Typically, his care is coordinated with a emotional disabilities teacher due to his conditions of pulmonary aortic stenosis and Nadeem syndrome. Prior episodes are managed with a regimen including prednisone and azithromycin per his emotional disabilities teacher, as well as nebulizer treatments when symptomatic. His emotional disabilities teacher, who prescribes these treatments, is currently unavailable. Physical Exam General: Cooperative, healthy appearing, comfortable and no acute distress Orientation/consciousness: Patient oriented x3 Limitations: No limitations Head: Normal to inspection Ears: Hearing grossly normal bilaterally, external ears normal and TM's normal bilaterally Nose: Normal external nose present, Normal nares present and No nasal discharge present Face and sinus: Normal facial exam and Yes sinuses nontender Mouth: Normal oral and palatal mucosa present and moist mucous membranes Throat: Yes tonsils normal, Yes uvula midline. Posterior oropharynx erythema Eyes: Appearance normal, both eyes and all related structures Neck: Normal visual inspection Respiratory: Clear to auscultation bilaterally. Normal respiratory effort, able to speak in complete sentences, Actively coughing, no respiratory distress, not tachypneic, no tripod positioning and no use of accessory muscles Cardiovascular: Regular rate and rhythm. Normal S1 and S2 Skin: No rashes or lesions noted Neuro: Patient oriented x3 Extremities: Normal to inspection and Yes no clubbing, cyanosis or edema [facility] Medical History Anemia Aortic stenosis, supravalvular Left carotid artery stenosis Subclavian artery stenosis, left Erosive esophagitis Annual physical exam Asthma Nadeem syndrome Pulmonary valve stenosis Surgical History History of open heart surgery H/O hernia repair Family History Mother No problems noted. Father No problems noted. Social History Housing: House Alcohol intake: never Patient Tobacco Use Status: Never used Tobacco e-Cigarette/Vaping Use: Never Used service: No Current occupational status: disabled Cognitive needs: No Hearing needs: No Vision needs: No Review of Systems Const All systems reviewed & are unremarkable except as noted in HPI and below Physical Exam Vital Signs: Last Vital Signs Temp 98.3 F 08/25/24 08:56 Pulse 76 08/25/24 08:56 BP 140/90 H 08/25/24 08:56 Pulse Ox 98 08/25/24 08:56 Oxygen Delivery Method Room Air 08/25/24 08:56 BMI result Body Mass Index 27.0 Assessment & Plan Assessment & Plan (1) Lower respiratory infection (e.g., bronchitis, pneumonia, pneumonitis, pulmonitis): Code(s): J22 - Unspecified acute lower respiratory infection Plan: For the chest congestion and mucus production, azithromycin Z-Donovan is prescribed to prevent bacterial infections as this is consistent with what has effectively been used in previous exacerbations by the patients Bathhouse Keeper. Although no significant findings upon examination suggested infection, due to the complexity of his condition due to Nadeem syndrome and pulmonary complications, proactive treatment is necessary, steroid taper has been sent (as per his mom, this is his Bathhouse Keeper's regimen). Maintenance of nebulizer treatments and use of [id number] medications are advised. Testing for flu, COVID-19, and RSV will be followed up, and medication availability will be ensured to mitigate the acuity of symptoms and prevent hospital admission. Patient was informed and verbally consented to the use of an ambient scribe for clinic note documentation during this visit Orders: Orders SARS-CoV2/FLU/RSV Today J22 - Unspecified acute lower respiratory infection Medications: New azithromycin For 250 mg dose pack: take 500 mg today (day 1), then 250 mg for 4 days (days 2-5) PO 6 tabs 0RF methylprednisolone PO PER PKG DIR for 6 days 21 ea 0RF Coding Level of Care Code Est Pt Level 3 (93553) Diagnoses Lower respiratory infection (e.g., bronchitis, pneumonia, pneumonitis, pulmonitis) J22
[2024-08-25 08:56] VITALS: BP 140/90; PULSE 76; TEMP 36.8; O2SAT 98; BMI 27.0
== END 2024-08-25 09:31 | disposition home or self-care (01) ==
PROVIDERS: PCP Internal Medicine; Visit Provider Physician Assistant
DX: J22 Unspecified acute lower respiratory infection (principal)

== ENCOUNTER 2024-09-09 11:15 | Outpatient (AMB) | payer OTHER, SELFPAY ==
--- NOTE | 2024-09-09 11:17 | AM.OFFWIN_ITS ---
Intake Vital Signs 09/09/24 11:18 Height 5 ft Weight 138 lb BMI 26.9 BP 122/80 Blood Pressure Location Lt brachial Position Sitting Pulse 96 Pulse Source Pulse Oximeter Temp 98.3 F Temp Source Oral Pulse Oximetry (%) 98 Intake Visit Reasons: EP, congestion, nasal drip, cough Intake Note: pt is here for Head Congestion Patient Tobacco Use Status: Never used Tobacco Allergies acetaminophen [From Tylenol-Codeine #3] Allergy (Verified 09/09/24 11:18) hives codeine [From Tylenol-Codeine #3] Allergy (Verified 09/09/24 11:18) hives Medication List - Last Reconciled 09/09/24 by Daryl Guevara MD aspirin mg PO atenolol 25 mg PO BID budesonide mg inhalation BID cetirizine 10 mg PO DAILY clotrimazole 1% (Athlete's Foot (clotrimazole)) 1 appl topical BID 2 weeks clotrimazole-betamethasone 1-0.05 % 1 appl topical BID 4 weeks dexlansoprazole (Dexilant) 60 mg PO DAILY epinephrine IM DIRECTED ketoconazole 2% 1 appl topical 2XW levalbuterol HCl (Xopenex) 0.63 mg (3 mL) inhalation TID PRN levalbuterol tartrate 45 mcg/actuation 1 puff PO Q4H PRN Do you need a note to return to daycare/school/sports/work: No HPI EP, congestion, nasal drip, cough HPI Details Patient presents with complaints of congestion, post nasal drip and rhinitis, cough with phlem. [facility] Medical History Anemia Aortic stenosis, supravalvular Left carotid artery stenosis Subclavian artery stenosis, left Erosive esophagitis Annual physical exam Asthma Nadeem syndrome Pulmonary valve stenosis Surgical History History of open heart surgery H/O hernia repair Family History Mother No problems noted. Father No problems noted. Social History Housing: House Alcohol intake: never Patient Tobacco Use Status: Never used Tobacco e-Cigarette/Vaping Use: Never Used service: No Current occupational status: disabled Cognitive needs: No Hearing needs: No Vision needs: No Review of Systems Const Denies chills, Denies fatigue, Denies fever(s), Denies headache(s) and Denies weakness ENT Denies dizziness and Denies headache(s) Card Details: Significant nasal congestion, pressure in pain. Also significant at drainage and postnasal drip Denies dyspnea Resp Details: Cough, congestion and mild wheeze Denies cough, Denies dyspnea, Denies wheezing and Denies other ( shortness of breath) Musc Denies numbness and Denies tingling Neuro Denies dizziness, Denies headache(s), Denies numbness, Denies tingling, Denies paresthesias and Denies weakness Psych Denies anxiety and Denies depression Endo Denies fatigue Aller/Immun Denies wheezing Physical Exam Vital Signs: Last Vital Signs Temp 98.3 F 09/09/24 11:18 Pulse 96 09/09/24 11:18 BP 122/80 09/09/24 11:18 Pulse Ox 98 09/09/24 11:18 BMI result Body Mass Index 26.9 Const General: no acute distress and well developed Nutritional Appearance: well nourished Orientation/consciousness: patient oriented x3 HEENT Other: Rawness at nasal mucosa. Significant nasal congestion and nares essentially not patent. Copious drainage and tinges of blood and mild pus. Mild tenderness at maxillary sinuses. Head: Yes normocephalic and Yes atraumatic Eyes General: appearance normal, both eyes and all related structures Pupils: Equal, round and reactive pupils present EOM: EOMs intact bilaterally Neck Other: Mild anterior cervical chain lymphadenopathy Resp Other: A few scattered wheezes bilaterally Coarse breath sounds No diminished breath sounds Upper airway secretions sounds Effort & Inspection: normal respiratory effort Cardio Other: Loud holosystolic murmur - known Neuro General: patient oriented x3 and gait normal Cranial nerves: Yes Equal, round and reactive pupils present Psych Affect: normal affect Assessment & Plan Assessment & Plan (1) Sinus infection: Code(s): J32.9 - Chronic sinusitis, unspecified Plan: Sinus infection with postnasal drip and bronchitis. Will give him a script for a Z-Donovan Also will give him prednisone for mild wheeze and a bronchitis. Call or return to office if not improving. (2) Bronchitis: Code(s): J40 - Bronchitis, not specified as acute or chronic Plan: As above Medications: New prednisone 4 tabs daily for 4 days, 3 tabs daily for 2 days, 2 tabs daily for 2 days, 1 tab daily for 2 days PO daily; 10 days 28 tabs 0RF azithromycin (Zithromax Z-Donovan) take 500 mg today (day 1), then 250 mg for 4 days (days 2-5) PO 5 days 6 tabs 0RF Coding Level of Care Code Est Pt Level 3 (25706) Diagnoses Sinus infection J32.9 Bronchitis J40
[2024-09-09 11:18] VITALS: BP 122/80; PULSE 96; TEMP 36.8; O2SAT 98; BMI 26.9
== END 2024-09-09 12:50 | disposition home or self-care (01) ==
PROVIDERS: PCP Internal Medicine; Visit Provider Family Medicine
DX: J32.9 Chronic sinusitis, unspecified (principal); J40 Bronchitis, not specified as acute or chronic

== ENCOUNTER 2024-09-09 11:15 | Outpatient (REF) | payer OTHER, SELFPAY | END 2024-09-09 11:16 | disposition home or self-care (01) | LOC: HO.LAB 11:15 | PROVIDERS: PCP Internal Medicine; Visit Provider Family Medicine | DX: J32.9 Chronic sinusitis, unspecified (principal); J40 Bronchitis, not specified as acute or chronic | CPT/HCPCS: 99212 ==

== ENCOUNTER 2025-08-02 11:17 | Outpatient (REF) | payer OTHER, SELFPAY ==
[2025-08-02 14:05] LABS: MANUAL DIFF FLAG NO
[2025-08-02 14:15] LABS: Hematocrit 44.2 % (42.0-52.0); Hemoglobin 14.6 g/dl (14.0-18.0); Imm Gran Abs Auto 0.02 X10*3/uL (0.00-0.03); Imm Gran Pct Auto 0.5 % (0.0-0.4); Lymphocytes Absolute Auto 0.7 X10*3/uL (1.2-4.9); Mean Corpuscular HGB Conc 33.0 g/dl (31.0-36.0); Mean Corpuscular Hemoglobin 27.5 pg (27.0-33.0); Mean Corpuscular Volume 83.2 fL (80.0-98.0); NRBC Abs Auto 0.000 X10*3/uL (0.0-0.012); NRBC Pct Auto 0.0 /100WBC (0.0-0.2); Platelet Count 157 X10*3/uL (160-400); Red Blood Count 5.31 X10*6/uL (4.60-5.80); White Blood Count 4.2 X10*3/uL (4.8-10.8)
[2025-08-02 14:52] LABS: Alanine Aminotransferase 24 U/L (0-40); Albumin Level 4.6 g/dL (3.5-5.0); Alkaline Phosphatase 49 U/L (39-117); Anion Gap 8 (12-20); Aspartate Amino Transferase 28 U/L (5-37); Blood Urea Nitrogen 15 mg/dL (9-16); Calcium 9.3 mg/dL (8.4-10.2); Carbon Dioxide 33 mmol/L (22-29); Chloride 104 mmol/L (96-108); Estimated Glomerular Filt Rate > 60; Potassium 4.0 mmol/L (3.3-5.1); Sodium 141 mmol/L (135-145); Total Protein 7.7 g/dL (6.5-8.0)
== END 2025-08-02 11:18 | disposition home or self-care (01) ==
LOC: HO.HMGCLDS 11:17
PROVIDERS: PCP Internal Medicine; Visit Provider Internal Medicine
DX: Z00.00 Encounter for general adult medical examination without abnormal findings (principal); Q93.82 Williams syndrome; Z23 Encounter for immunization; Z13.31 Encounter for screening for depression; Z13.39 Encounter for screening examination for other mental health and behavioral disorders; J45.909 Unspecified asthma, uncomplicated; J22 Unspecified acute lower respiratory infection; I77.1 Stricture of artery; E55.9 Vitamin D deficiency, unspecified
CPT/HCPCS: 36415; 80053; 82306; 85025; 90471; 90656; 96127; 99395

== ENCOUNTER 2025-08-02 11:17 | Outpatient (AMB) | payer OTHER, SELFPAY ==
--- NOTE | 2025-08-02 11:19 | MHC.PC.OV ---
Vital Signs 08/02/25 11:20 Height 5 ft Weight 142 lb BMI 27.7 BP 124/86 Blood Pressure Location Lt brachial Position Sitting Respiration 16 Pulse 73 Pulse Source Pulse Oximeter Temp 98.3 F Temp Source Oral Pulse Oximetry (%) 98 Oxygen Delivery Method Room Air Intake Visit Reasons: Annual PE Intake Note: Pt is here today for PE. Allergies acetaminophen (From Tylenol-Codeine #3) Allergy (Verified 08/02/25 11:20) hives codeine (From Tylenol-Codeine #3) Allergy (Verified 08/02/25 11:20) hives Medication List - Last Reconciled 08/02/25 by Beth Child MD amoxicillin 2,000 mg (4 x 500 mg) PO Q12H aspirin mg PO atenolol 25 mg PO BID budesonide mg inhalation BID cetirizine 10 mg PO DAILY clotrimazole 1% (Athlete's Foot (clotrimazole)) 1 appl topical BID 2 weeks clotrimazole-betamethasone 1-0.05 % 1 appl topical BID 4 weeks dexlansoprazole (Dexilant) 60 mg PO DAILY epinephrine 0.3 mL IM DIRECTED ketoconazole 2% 1 appl topical 2XW levalbuterol HCl (Xopenex) 0.63 mg (3 mL) inhalation TID PRN levalbuterol tartrate 45 mcg/actuation 1 puff PO Q4H PRN ondansetron 4 mg PO BID PRN 5 days prednisone PO PER PKG DIR Tobacco use date assessed: 08/02/25 Dental Screening Dental Screen Date: 08/02/25 Did you have a dental visit in the last 12 months?: Yes Did you have a dental problem in the last 6 months where you did not have access to dental care?: No Was dental information given to patient?: Patient has dentist HPI Annual PE HPI Details Pt presents for PE. Pt c/o productive cough with green sputum, sinus congestion, postnasal drip, low grade fever for 2 weeks. Patient denies wheezing shortness or breath pleurisy. He was seen by ripsaw operator and prescribed Medrol Dosepak yesterday. pt has chronic urinary incontinence and has been using penile cup Depend guard and washable bed pads. [facility] Medical History Urinary incontinence Anemia Aortic stenosis, supravalvular Left carotid artery stenosis Subclavian artery stenosis, left Erosive esophagitis Annual physical exam Asthma Naedem syndrome Pulmonary valve stenosis Surgical History History of open heart surgery H/O hernia repair Family History Mother No problems noted. Father No problems noted. Social History Housing: House Alcohol intake: never Patient Tobacco Use Status: Never used Tobacco e-Cigarette/Vaping Use: Never Used service: No Current occupational status: disabled Cognitive needs: No Hearing needs: No Vision needs: No Questionnaire PHQ-9 Over the last 2 weeks, how often have you been bothered by any of the following problems? 1. Little interest or pleasure in doing things: not at all 2. Feeling down, depressed, or hopeless: not at all 3. Trouble falling or staying asleep, or sleeping too much: not at all 4. Feeling tired or having little energy: not at all 5. Poor appetite or overeating: not at all 6. Feeling bad about yourself - or that you are a failure or have let yourself or your family down: not at all 7. Trouble concentrating on things, such as reading the newspaper or watching television: not at all 8. Moving or speaking so slowly that other people could have noticed. Or the opposite - being so fidgety or restless that you have been moving around a lot more than usual: not at all 9. Thoughts that you would be better off or of hurting yourself in some way: not at all Total score: 0 Depression Screening Interpretation: Negative Depression Screening Done: Yes 40267 - PHQ-9 Billing: Yes Source: Developed by Drs. Braydon Davidson, Sadie Silver, Maximiliano Greenfield and colleagues, with an educational syl from [employer]. Thrive Questionnaire Date Thrive assessed: 08/02/25 I am a: Parent/Caregiver What is your living situation today?: I have a steady place to live Within the past 12 months, did the food you bought not last and you didn't have the money to get more?: I choose not to answer this question Within the past 12 months, did you worry whether your food would run out before you got money to buy more?: I choose not to answer this question Do you have trouble paying for medicines?: No Do you have trouble getting transportation to medical appointments?: No Do you have trouble paying your heating and electricity bill?: I choose not to answer this question Do you have trouble taking care of your child, family member or friend?: No Do you have trouble with day-to-day activities such as bathing, preparing meals, shopping, managing finances, etc.?: I choose not to answer this question Are you currently unemployed and looking for a job?: I choose not to answer this question Are you interested in more education?: I choose not to answer this question Please select the resources that you would like help with: None Currently or been in a relationship where the following occur: I choose not to answer THRIVE Score: 0 AUDIT C Alcohol Use Questionnaire (AUDIT-C) 1. How often do you have a drink containing alcohol?: Never 3. How often do you have six or more drinks on one occasion?: Never Total Score: 0 ZO-7 AMB Questionnaire ZO-7 Date ZO - 7 assessed: 08/02/25 Feeling nervous, anxious, or on edge: 0 = Not at all Not being able to stop or control worryin = Not at all Worrying too much about different things: 0 = Not at all Trouble relaxin = Not at all Being so restless that it is hard to sit still: 0 = Not at all Becoming easily annoyed or irritable: 0 = Not at all Feeling afraid as if something awful might happen: 0 = Not at all Total ZO-7 score (0-4 normal; 5-9 mild; 10-14 moderate; 15-21 severe): 0 Source: Developed by Drs. Braydon Davidson, Sadie Silver, Maximiliano Greenfield and colleagues, with an educational syl from [employer]. ZO-7 Assessment Billing ZO-7 Assessment Tool: ZO-7 Assessment 67769 Review of Systems Const All systems reviewed & are unremarkable except as noted in HPI and below Eyes Reports no additional complaints ENT Reports no additional complaints Card Reports no additional complaints Resp Reports no additional complaints GI Reports no additional complaints Reports no additional complaints Musc Reports no additional complaints Physical exam (Primary Care) Vital Signs: Last Vital Signs Temp 98.3 F 08/02/25 11:20 Pulse 73 08/02/25 11:20 Resp 16 08/02/25 11:20 BP 124/86 08/02/25 11:20 Pulse Ox 98 08/02/25 11:20 Oxygen Delivery Method Room Air 08/02/25 11:20 BMI result Body Mass Index 27.7 Tobacco/Smoking Status: Tobacco use Status Tobacco use date assessed 08/02/25 08/02/25 11:20 Patient Tobacco Use Status Never used Tobacco 08/02/25 11:20 e-Cigarette/Vaping Use Never Used 08/02/25 11:20 PHQ-9: PHQ-9 Score PHQ-9: Total score 0 08/02/25 11:31 Depression Screening Interpretation: Negative Thrive Assessment: Date of Thrive Assessment Date Thrive assessed 08/02/25 08/02/25 11:31 Currently or been in a relationship where the following occur: I choose not to answer Const General: no acute distress HENMT Head: Yes normal to inspection Ears: hearing grossly normal bilaterally General nose exam: Normal external nose present Face and sinus: Yes sinus tenderness Mouth: Normal oral and palatal mucosa present Throat: Yes postnasal drainage Eyes General: appearance normal, both eyes and all related structures Neck Neck: Yes no lymphadenopathy and Yes supple Resp Effort & Inspection: normal respiratory effort Auscultation: diminished lung sounds Cardio Rhythm: regular rhythm Heart sounds: S1 normal heart sound present and S2 normal heart sound present GI Inspection: Yes normal to inspection Palpation (GI): Soft to palpation Percussion: Yes normal to percussion Auscultation: normal bowel sounds Coding Level of Care Code Est Pt Prev Care 18-39y(52824) Diagnoses Allergic rhinitis J30.9 Asthma J45.909 Lower respiratory infection (e.g., bronchitis, pneumonia, pneumonitis, pulmonitis) J22 Subclavian artery stenosis, left I77.1 Annual physical exam Z00.00 Additional Codes ZO-7 Assessment Billing - ZO-7 Assessment Tool: ZO-7 Assessment 62898 ([id number]) PHQ-9 - 57722 - PHQ-9 Billing: Yes ([id number]) Assessment & Plan Assessment & Plan (1) Allergic rhinitis: Code(s): J30.9 - Allergic rhinitis, unspecified Category: Medical Plan: For recurrent sinusitis and seasonal allergies patient will be referred to the mechanical fitter (2) Asthma: Comment: prn Albuterol nebulizer, follows up with ripsaw operator Dr. Lewis Code(s): J45.909 - Unspecified asthma, uncomplicated Category: Medical Plan: Continue current treatment (3) Lower respiratory infection (e.g., bronchitis, pneumonia, pneumonitis, pulmonitis): Code(s): J22 - Unspecified acute lower respiratory infection Category: Medical Plan: Z-Donovan will be added to Medrol Dosepak and supportive care discussed with the patient (4) Subclavian artery stenosis, left: Comment: Dr. Cabrera from [facility] , Echo q 6 months, [facility] Code(s): I77.1 - Stricture of artery Category: Medical Plan: Follow-up with cardiology at [facility] (5) Annual physical exam: Code(s): Z00.00 - Encounter for general adult medical examination without abnormal findings Category: Medical Plan: Well-balanced diet regular physical activity discussed with the patient he will have a fasting blood work today Orders: Orders Complete Blood Count Auto Diff Today E55.9 - Vitamin D deficiency, unspecified, J22 - Unspecified acute lower respiratory infection, J45.909 - Unspecified asthma, uncomplicated, Q93.82 - Nadeem syndrome Comprehensive [place]. Panel Fast Today E55.9 - Vitamin D deficiency, unspecified, J22 - Unspecified acute lower respiratory infection, J45.909 - Unspecified asthma, uncomplicated, Q93.82 - Nadeem syndrome Vitamin D 25-OH Total Today E55.9 - Vitamin D deficiency, unspecified, J22 - Unspecified acute lower respiratory infection, J45.909 - Unspecified asthma, uncomplicated, Q93.82 - Nadeem syndrome Referrals Allergy & Immunology Referral J30.9 - Allergic rhinitis, unspecified Medications: New azithromycin For 250 mg dose pack: take 500 mg today (day 1), then 250 mg for 4 days (days 2-5) PO 6 tabs 0RF
[2025-08-02 11:20] VITALS: BP 124/86; PULSE 73; RESP 16; TEMP 36.8; O2SAT 98; BMI 27.7
== END 2025-08-02 12:14 | disposition home or self-care (01) ==
LOC: HO.HMCC 11:18
PROVIDERS: PCP Internal Medicine; Visit Provider Internal Medicine
DX: Z00.00 Encounter for general adult medical examination without abnormal findings (principal); I77.1 Stricture of artery; J30.9 Allergic rhinitis, unspecified; J22 Unspecified acute lower respiratory infection; J45.909 Unspecified asthma, uncomplicated; Z23 Encounter for immunization